=== PATIENT | male | born 1940 | race Caucasian/White ===

== ENCOUNTER 2021-08-18 11:22 | Emergency (ER) | payer OTHER ==
[~2021-08-18] VITALS: Ht 160 cm; Wt 83.9 kg
[2021-08-18] MEDS ORDERED: COZAAR50 MG PO (11:39)
[2021-08-18] MEDS ORDERED: ACID REDUCER20 M1 PO (11:39)
[2021-08-18] MEDS ORDERED: PEPCID AC20 MG (11:40)
== END 2021-08-18 19:14 | disposition home or self-care (01) ==
LOC: ER 11:22
DX: K52.9 Noninfective gastroenteritis and colitis, unspecified (principal)